=== PATIENT | female | born 1990 | race Caucasian/White ===

== ENCOUNTER 2021-10-23 05:50 | Emergency (ER) | payer OTHER, MEDICAID ==
[~2021-10-23] VITALS: Ht 162.6 cm; Wt 51.7 kg
[~2021-10-23 05:50] MED LIST: ACETAMINOPHEN-1 EAC1 PO; AMOXICILLIN 50500 MG PO; NOHOMEMEDICATIONS
[2021-10-23] MEDS ORDERED: KEPPRA100 MG/1 M PO (05:54)
[2021-10-23 06:54] VITALS: BP 135/78
== END 2021-10-23 09:30 | disposition home or self-care (01) ==
LOC: M.ERS 05:50
DX: S20.221A Contusion of right back wall of thorax, initial encounter (principal); R56.9 Unspecified convulsions; Z90.49 Acquired absence of other specified parts of digestive tract; Z79.899 Other long term (current) drug therapy; X58.XXXA Exposure to other specified factors, initial encounter; Y93.89 Activity, other specified; Y92.89 Other specified places as the place of occurrence of the external cause; Y99.8 Other external cause status

== ENCOUNTER 2021-10-23 08:39 | Emergency (ER) | payer OTHER, MEDICAID ==
[~2021-10-23] VITALS: Ht 157.5 cm; Wt 54.4 kg
[~2021-10-23 08:39] MED LIST changes: +KEPPRA100 MG/1 M PO
[2021-10-23 08:42] VITALS: BP 106/78
== END 2021-10-23 09:30 | disposition home or self-care (01) ==
LOC: M.ERS 08:39
DX: R56.9 Unspecified convulsions (principal); R11.0 Nausea; Z90.49 Acquired absence of other specified parts of digestive tract; Z79.899 Other long term (current) drug therapy